=== PATIENT | female | born 1975 | race Caucasian/White ===

== ENCOUNTER → 2016-12-17 | Outpatient (CLI) | payer OTHER ==
[~2016-12-17] MED LIST: ADVIL200 MG PO; ALLEGRA180 MG PO; ATARAX25 MG PO; DELTASONE10 MG PO; NORCO 5-325 MG1 TAB PO; PERCOCET 5-3251 EACH PO; PRENATAL 1+1)(P1 TAB PO
== END | disposition disaster alternative care site (69) ==
LOC: GLAB 08:00
DX: Z31.41 Encounter for fertility testing (principal)